=== PATIENT | female | born 2005 | race Two or more races ===

== ENCOUNTER 2024-11-16 17:50 | Emergency (ER) | payer OTHER ==
[~2024-11-16] VITALS: Ht 165.1 cm; Wt 81.6 kg
[2024-11-16 18:06] VITALS: TEMP 98.1
[2024-11-16] MEDS ORDERED: IBUPROFEN 600 MG TABLET ONE (18:50)
[2024-11-16] MEDS ORDERED: ACETAMINOPHEN ES 500 MG TABLET ONE (18:50)
[2024-11-16] MEDS: ACETAMINOPHEN ES 500 MG TABLET PO ONE (18:54)
[2024-11-16] MEDS: IBUPROFEN 600 MG TABLET PO ONE (18:54)
[2024-11-16] MEDS ORDERED: IBUP-1490 PO (19:08)
[2024-11-16 19:23] VITALS: BP 115/75; O2SAT 97
== END 2024-11-16 19:21 | disposition home or self-care (01) ==
LOC: ER 18:08
DX: S60.211A Contusion of right wrist, initial encounter (principal); W20.8XXA Other cause of strike by thrown, projected or falling object, initial encounter; Y93.89 Activity, other specified; Y92.89 Other specified places as the place of occurrence of the external cause; Y99.0 Civilian activity done for income or pay
CPT/HCPCS: 73110; 73130-TC